=== PATIENT | female | born 1945 | race Caucasian/White ===

== ENCOUNTER 2018-08-31 10:41 | Inpatient (IN) | payer MEDICARE, SELFPAY | END 2018-09-04 18:10 | disposition home or self-care (01) | DRG 291 | PROVIDERS: Admitting Provider Internal Medicine; Emergency Provider Emergency Medicine; PCP Internal Medicine; Visit Provider Family Medicine | DX: I13.0 Hypertensive heart and chronic kidney disease with heart failure and stage 1 through stage 4 chronic kidney disease, or unspecified chronic kidney disease (principal); I50.33 Acute on chronic diastolic (congestive) heart failure; J90 Pleural effusion, not elsewhere classified; I25.10 Atherosclerotic heart disease of native coronary artery without angina pectoris; G47.33 Obstructive sleep apnea (adult) (pediatric); N18.3 Chronic kidney disease, stage 3 (moderate); Z95.1 Presence of aortocoronary bypass graft; J43.9 Emphysema, unspecified; D64.9 Anemia, unspecified; F41.8 Other specified anxiety disorders; Z85.3 Personal history of malignant neoplasm of breast; L40.9 Psoriasis, unspecified; M19.90 Unspecified osteoarthritis, unspecified site; Z86.73 Personal history of transient ischemic attack (TIA), and cerebral infarction without residual deficits; Z90.49 Acquired absence of other specified parts of digestive tract; Z79.82 Long term (current) use of aspirin; K21.9 Gastro-esophageal reflux disease without esophagitis; Z87.11 Personal history of peptic ulcer disease; I25.2 Old myocardial infarction; Z95.2 Presence of prosthetic heart valve; Z87.891 Personal history of nicotine dependence; E11.22 Type 2 diabetes mellitus with diabetic chronic kidney disease | CPT/HCPCS: 32555; 36415; 71045; 71046; 71275; 80048; 82042; 83615; 83735; 83880; 84157; 84484; 85025; 85380; 85610; 85730; 86480; 87015; 87070; 87075; 87116; 87205; 87206; 88104; 88108; 88305; 89051; 93005; 94618; 94640; 96374; 96376; 97161; 97166; 99285; A9270; C8929; G0378; J1940; Q9967 ==

== ENCOUNTER 2019-06-11 15:20 | Outpatient (CLI) | payer MEDICARE, SELFPAY ==
--- NOTE | ~2019-06-11 | XR_ITS ---
EXAMINATION: XR chest 2V DATE: 06/11/2019 16:00 INDICATION: Pleural effusion, not elsewhere classified. TECHNIQUE: Frontal and lateral views of the chest were obtained. COMPARISON: Chest 2 views 04/24/2019 FINDINGS: There are lucencies in the lungs, consistent with emphysema. There is a small left pleural effusion. There are airspace opacities at left lung base. No pneumothorax. The heart size is normal. There are changes of heart valve replacement. IMPRESSION: 1. Improved small left pleural effusion. 2. Stable airspace opacities at left lung base, consistent with atelectasis versus pneumonia. 3. Emphysema. Reviewed, dictated and finalized at location A. FITTER IMPRESSION: 1. Improved small left pleural effusion. 2. Stable airspace opacities at left lung base, consistent with atelectasis ani elizabeth pneumonia. 3. Emphysema.
== END 2019-06-11 15:21 | disposition home or self-care (01) ==
PROVIDERS: PCP Internal Medicine; Visit Provider Internal Medicine Critical Care Medicine
DX: J90 Pleural effusion, not elsewhere classified (principal); J43.9 Emphysema, unspecified; R91.8 Other nonspecific abnormal finding of lung field
CPT/HCPCS: 71046

== ENCOUNTER 2019-06-25 16:22 | Outpatient (CLI) | payer MEDICARE, SELFPAY ==
--- NOTE | ~2019-06-25 | XR_ITS ---
CORRECTED REPORT Ordering provider changed from Lyubov Lawrence MD to Keri Williamson [facility] [id number] EXAMINATION: XR chest 2V EXAM DATE: 06/25/2019 16:53 INDICATION: Pleural effusion. TECHNIQUE: Frontal and lateral projections of the chest obtained and reviewed. Comparison is made to prior examination from 06/11/2019. FINDINGS: Sternotomy wires are present without findings to suggest sternal dehiscence. Cardiac valve replacement. Small to moderate-sized left pleural effusion with adjacent atelectasis is unchanged. The lungs are otherwise clear. There are no pleural effusions. The cardiomediastinal silhouette is within normal limits. There is no pneumothorax suspected. The bones and soft tissues are unremarkable. There are cholecystectomy clips. IMPRESSION: Persistent small to moderate left pleural effusion, adjacent atelectasis. Reviewed, dictated and finalized at location A. MTDD IMPRESSION: Persistent small to moderate left pleural effusion, adjacent atelec tasis.
== END 2019-06-25 16:23 | disposition home or self-care (01) ==
PROVIDERS: PCP Internal Medicine; Visit Provider Internal Medicine Critical Care Medicine
DX: J90 Pleural effusion, not elsewhere classified (principal); R06.09 Other forms of dyspnea
CPT/HCPCS: 71046

== ENCOUNTER 2019-10-03 12:39 | Outpatient (CLI) | payer MEDICARE, SELFPAY ==
--- NOTE | ~2019-10-03 | XR_ITS ---
EXAMINATION: XR chest 2V DATE: 10/03/2019 12:58 INDICATION: Shortness of breath. TECHNIQUE: Frontal and lateral views of the chest were obtained. COMPARISON: Chest 2 views 06/25/2019, chest CT 08/31/2018 FINDINGS: There are lucencies in the lungs, consistent with emphysema. There is a small left pleural effusion. There are airspace opacities at the lung bases. No pneumothorax. The heart size is normal. There are changes of mitral valve replacement. IMPRESSION: 1. Small left pleural effusion with interval improvement. 2. Airspace opacities at the lung bases, consistent with atelectasis or less likely pneumonia. 3. Emphysema. Reviewed, dictated and finalized at location A. IMPRESSION: 1. Small left pleural effusion with interval improvement. 2. Airspace opacities at the lung bases, consistent with atelectasis or less li maryellen pneumonia. 3. Emphysema.
== END 2019-10-03 12:40 | disposition home or self-care (01) ==
PROVIDERS: PCP Internal Medicine; Visit Provider Nurse Practitioner Family
DX: R06.02 Shortness of breath (principal); J43.9 Emphysema, unspecified; J90 Pleural effusion, not elsewhere classified; R91.8 Other nonspecific abnormal finding of lung field
CPT/HCPCS: 71046

== ENCOUNTER 2019-10-30 10:49 | Outpatient (CLI) | payer MEDICARE, SELFPAY ==
--- NOTE | ~2019-10-30 | XR_ITS ---
XR chest 2V 10/30/2019 11:08 Indication: Shortness of breath Procedure: AP portable chest Comparison: Comparison to multiple prior studies sequentially, with oldest reviewed study dated 11/2019. Findings: Status post median sternotomy for CABG. Cardiomegaly. Moderate left pleural effusion. Left basilar airspace disease, atelectasis versus pneumonia. There is a prosthetic heart valve. There is a therosclerosis of the aorta. Impression: 1: Left basilar airspace disease, atelectasis versus pneumonia. 2: Moderate left pleural effusion. Reviewed, dictated and finalized at location B. Impression: 1: Left basilar airspace disease, atelectasis versus pneumonia. 2: Moderate left pleural effusion.
== END 2019-10-30 10:50 | disposition home or self-care (01) ==
PROVIDERS: PCP Internal Medicine; Visit Provider Nurse Practitioner Family
DX: R06.02 Shortness of breath (principal); R91.8 Other nonspecific abnormal finding of lung field; J90 Pleural effusion, not elsewhere classified
CPT/HCPCS: 71046

== ENCOUNTER 2019-11-25 12:03 | Outpatient (CLI) | payer MEDICARE, SELFPAY ==
--- NOTE | ~2019-11-25 | XR_ITS ---
EXAMINATION: XR chest 2V DATE: 11/25/2019 12:32 INDICATION: Shortness of breath TECHNIQUE: frontal and lateral views of the chest were obtained. COMPARISON: Chest radiograph dated 10/30/2019 FINDINGS: Opacities in the left mid to lower lung zone consistent with small to moderate left pleural effusion and associated left basilar atelectasis and/or pneumonia. Right lung is clear. No pneumothorax or rig ht-sided pleural effusion. The cardiomediastinal silhouette is normal. Median sternotomy wires and me diastinal surgical clips are seen, likely from prior coronary artery bypass grafting. Mitral valve re pair. Atherosclerotic aorta. Cholecystectomy clips in the right upper quadrant. IMPRESSION: 1. No significant change in a small to moderate left pleural effusion with associated left basilar at electasis and/or pneumonia. Reviewed, dictated and finalized at location A. IMPRESSION: 1. No significant change in a small to moderate left pleural effusion with asso ciated left basilar atelectasis and/or pneumonia.
== END 2019-11-25 12:04 | disposition home or self-care (01) ==
PROVIDERS: PCP Internal Medicine; Visit Provider Clinical Nurse Specialist
DX: R06.02 Shortness of breath (principal)
CPT/HCPCS: 71046

== ENCOUNTER 2019-12-04 15:29 | Outpatient (CLI) | payer MEDICARE, SELFPAY ==
--- NOTE | ~2019-12-04 | CT_ITS ---
EXAMINATION: CT chest wo con DATE: 12/04/2019 16:00 INDICATION: Emphysema. Dyspnea TECHNIQUE: Computed tomography (CT) of the chest was performed without intravenous contrast. Addition al 3D reconstructions utilizing coronal maximum intensity projection (MIP) were performed. Automated exposure control and iterative reconstruction technique were employed. The dose-length product was 29 4.64 mGy-cm. COMPARISON: 08/31/2018 FINDINGS: Severe emphysema. Small to moderate-sized left pleural effusion. Peripheral consolidation at the late ral basilar left lower lobe and along the inferior lingula. At the left lower lobe there is associate d architectural distortion indicating volume loss consistent with round atelectasis. No pneumonia, pu lmonary edema, pneumothorax or right pleural effusion. Heart size is normal. No pericardial effusion. Atherosclerotic coronary artery calcifications unchanged prior sternotomy and coronary artery bypass grafting. Aortic valve calcification. Mitral valve repair. There is calcified atherosclerosis of the normal caliber aorta and many of the other arteries. Small sliding-type hiatal hernia. No interval change in several mildly prominent but not pathologically enlarged thoracic lymph nodes which are lik myke reactive. Cholecystectomy clips at the gallbladder fossa. IMPRESSION: 1. Severe emphysema. 2. Chronic small to moderate-sized left pleural effusion with atelectasis/scarring at the left lung b ase. 3. Small sliding-type hiatal hernia. Reviewed, dictated and finalized at location A. IMPRESSION: 1. Severe emphysema. 2. Chronic small to moderate-sized left pleural effusion with atelectasis/scarr ing at the left lung base. 3. Small sliding-type hiatal hernia.
== END 2019-12-04 15:30 | disposition home or self-care (01) ==
PROVIDERS: PCP Internal Medicine; Visit Provider Internal Medicine
DX: R06.00 Dyspnea, unspecified (principal); J43.9 Emphysema, unspecified; K44.9 Diaphragmatic hernia without obstruction or gangrene; J90 Pleural effusion, not elsewhere classified
CPT/HCPCS: 71250

== ENCOUNTER 2020-02-11 14:53 | Outpatient (CLI) | payer MEDICARE, SELFPAY ==
--- NOTE | ~2020-02-11 | XR_ITS ---
EXAMINATION: XR chest 2V DATE: 02/11/2020 15:17 INDICATION: Shortness of breath. TECHNIQUE: Frontal and lateral views of the chest were obtained. COMPARISON: Chest 2 views 11/25/2019, chest CT 12/04/2019 FINDINGS: There are lucencies in the lungs, consistent with emphysema. There is a small left pleural effusion. There are airspace opacities at left lung base, likely atelectasis. No pneumothorax. The he art size is normal. There are changes of mitral valve replacement and coronary artery bypass grafting . IMPRESSION: 1. Stable small left pleural effusion. 2. Stable airspace opacities at left lung base, likely atelectasis. Pneumonia is less likely. 3. Emphysema. Reviewed, dictated and finalized at location A. IMPRESSION: 1. Stable small left pleural effusion. 2. Stable airspace opacities at left lung base, likely atelectasis. Pneumonia i s less likely. 3. Emphysema.
== END 2020-02-11 14:54 | disposition home or self-care (01) ==
LOC: ANHIMG 14:57
PROVIDERS: PCP Internal Medicine; Visit Provider Nurse Practitioner Family
DX: J90 Pleural effusion, not elsewhere classified (principal); R06.02 Shortness of breath; J43.9 Emphysema, unspecified; R91.8 Other nonspecific abnormal finding of lung field
CPT/HCPCS: 71046

== ENCOUNTER 2020-04-06 11:34 | Emergency (ER) | payer MEDICARE, SELFPAY ==
--- NOTE | ~2020-04-06 | XR_ITS ---
EXAMINATION: XR chest 2V DATE: 04/06/2020 12:47 INDICATION: Shortness of breath, COPD TECHNIQUE: AP and lateral views of the chest are obtained. COMPARISON: 02/11/2020 FINDINGS: A small left pleural effusion has slightly increased in size. There is no pneumothorax. Lef t basilar airspace opacities have slightly worsened. There are changes of prior cardiac surgery. Ther e is mild thoracic spondylosis. IMPRESSION: 1. Small left pleural effusion with slight interval worsening. 2. Left basilar airspace opacity, consistent with atelectasis versus pneumonia. Reviewed, dictated and finalized at location A. NCIAL PLANNING CONSULTANT
[2020-04-06 11:58] VITALS: BP 112/55; PULSE 93; RESP 24; TEMP 36.7; O2SAT 100
--- NOTE | 2020-04-06 12:01 | ECG_ITS ---
Measurements Intervals [place] Rate: 85 P: 26 MI: 152 QRS: 60 QRSD: 90 T: 16 QT: 371 QTc: 442 Interpretive Statements SINUS RHYTHM LOW QRS VOLTAGE IN PRECORDIAL LEADS BORDERLINE R WAVE PROGRESSION, ANTERIOR LEADS BORDERLINE T WAVE ABNORMALITY- ANTERIOR LEADS BASELINE ARTIFACT- I, II, AVR, V3 BORDERLINE ECG Electronically Signed On 04-06-2020 15:17:13 EGG CRATER by Bertram Vides D.O.
[2020-04-06 12:16] LABS: Basophils Percent Auto 0.7 % (0.2-1.2); Eosinophils Absolute Auto 0.1 K/mm3 (0-0.3); Eosinophils Percent Auto 1.1 % (0-4.4); Hematocrit 31.7 % (37.0-47.0); Hemoglobin 10.4 g/dL (12.0-15.0); Immature Granulocyte Absolute 0.02 K/mm3 (0.00-0.031); Immature Granulocyte Percent A 0.4 % (0-0.5); Lymphocytes Absolute Auto 0.91 K/mm3 (0.9-3.2); Lymphocytes Percent Auto 19.9 % (18.3-44.2); Mean Corpuscular HGB Conc 32.8 g/dl (32-36); Mean Corpuscular Hemoglobin 29.3 pg (26-34); Mean Corpuscular Volume 89.3 fl (80-100); Mean Platelet Volume 9.4 fl (7.4-10.4); Monocytes Absolute Auto 0.4 K/mm3 (0.1-0.6); Monocytes Percent Auto 9.6 % (2.6-8.5); Neutrophils Absolute Auto 3.1 K/mm3 (1.3-6.7); Neutrophils Percent Auto 68.3 % (45.5-73.1); Platelet Count Result 193 k/mm3 (150-375); Red Blood Count 3.55 M/mm3 (4.2-5.4); Red Cell Distribution Width 12.8 % (11.5-14.5); White Blood Count 4.6 K/mm3 (4.5-10.0)
[2020-04-06 12:27] LABS: Anion Gap 7 mmol/L (8-16); Blood Urea Nitrogen 25 mg/dL (7-17); Calcium 9.1 mg/dL (8.4-10.2); Carbon Dioxide 26 mmol/L (22-30); Chloride 99 mmol/L (98-107); Estimated CRCL calculation 27 ml/min; Estimated Glomerular Filt Rate 30; Glucose 344 mg/dL (65-105); Potassium 4.6 mmol/L (3.4-5.0); Sodium 132 mmol/L (137-145)
[2020-04-06 14:14] VITALS: BP 143/80; PULSE 86; RESP 17; O2SAT 100
[2020-04-06 14:15] VITALS: O2SAT 100
--- NOTE | 2020-04-06 14:38 | ED.SOB ---
HPI - SOB/Dyspnea General Chief Complaint: Shortness of Breath/Dyspnea Stated Complaint: SOB Time Seen by Provider: 04/06/20 14:09 Source: patient Mode of arrival: wheelchair Limitations: no limitations History of Present Illness HPI Narrative: This is a 74 year old female that presents to the ER for increasing shortness of breath x 2 days. Reports she usually uses home O2 as needed. Reports over the last couple of days she has had to be on 2 L chronically. Denies any other symptoms. Denies fever, cough, or chest pain. Related Data Home Medications Medication Instructions Recorded Confirmed albuterol sulfate 90 mcg/actuation 1 puff INHALATION Q4H PRN 02/18/19 02/03/20 aerosol inhaler aspirin 81 mg tablet,delayed 81 mg PO DAILY 02/18/19 02/03/20 release cholecalciferol (vitamin D3) 50 2,000 unit PO DAILY 02/18/19 02/03/20 mcg (2,000 unit) capsule cyanocobalamin (vitamin B-12) 1,000 mcg PO DAILY 02/18/19 02/03/20 1,000 mcg capsule ezetimibe 10 mg tablet 10 mg PO DAILY 02/18/19 02/03/20 pyridoxine (vitamin B6) 100 mg 100 mg PO DAILY 02/18/19 02/03/20 tablet tramadol 50 mg tablet 50 mg PO Q6H PRN 02/18/19 02/03/20 ferrous sulfate 325 mg (65 mg 325 mg PO DAILY tablet 11/25/19 02/03/20 iron) tablet Allergies Allergy/AdvReac Type Severity Reaction Status Date / Time tetracycline Allergy Severe Anaphylaxis Verified 02/04/20 11:19 shellfish derived Allergy Severe Anaphylaxis Uncoded 02/03/20 10:59 Review of Systems Review of Systems: Narrative: CONSTITUTIONAL: Denies fever ENT: Denies rhinorrhea, congestion CARDIOVASCULAR: Denies chest pain, or edema. RESPIRATORY: Reports dyspnea. Denies cough All systems reviewed & are unremarkable except as noted in HPI and below PMFSH Past Medical History Medical History Anemia Asthma Breast cancer CKD (chronic kidney disease) stage 4, GFR 15-29 ml/min Diabetes type 2, controlled Diastolic dysfunction Dyspnea Hypertension Mitral valve stenosis Stroke Surgical History Surgical History Breast tumor H/O heart surgery Hx of cholecystectomy Family History Family History Mother Diabetes mellitus Hypertension Family history of chronic obstructive pulmonary disease, Onset Age: 71 Asthma Father Acute myocardial infarction Sibling Diabetes mellitus Asthma Family history of chronic obstructive pulmonary disease Social History Social History Smoking packs per day: 5 Smoking cigarettes per day: 100.0 Years smoked: 20 Smoking pack-years: 100.00 Smoking status: Former smoker Smoking end date: 04/17/87 Alcohol intake: never Exam Narrative: Exam Narrative: GENERAL: Well-appearing, well-nourished, and in no acute distress. HEAD: Normocephalic, atraumatic. EYES: EOMI. ENT: Nares clear, no rhinorrhea or epistaxis. Mucous membranes moist. Oropharynx without tonsillar hypertrophy exudate or other lesions. Bilateral TMs pearly fitzgerald non-bulging NECK: Supple. No adenopathy or masses. CHEST: No respiratory distress. Rales in the LLL. No wheezes or rhonchi HEART: Regular rate and rhythm. No murmur heard. Normal peripheral pulses. EXTREMITIES: Normal range of motion. No edema. SKIN: Warm, dry, no rash. NEURO: No focal deficits. Alert and oriented x3. PSYCH: Normal mood and affect Course Consultations Consultation #1: Spoke with her customer professional, Dr. Lawrence. Patient is to continue her daily prednisone. Also continue albuterol as needed. Will be started on Augmentin. Date: 04/06/20 Time: 16:39 Vital Signs Vital signs: Vital Signs Temperature 98.0 F 04/06/20 11:58 Pulse Rate 93 04/06/20 11:58 Respiratory Rate 24 H 04/06/20 11:58 Blood Pressure 112/55 L 04/06/20 11:58 Pulse Oximetry 100 04/06/20 1
[2020-04-06 14:58] LABS: Alveolar/Arterial O2 Gradient 37.1 mmHg; Base Excess ABG -1.7 mEq/l (+/-2.0); Carboxyhemoglobin 0.1 % THb (0-2.0); Fractional Inspired Oxygen 32 %; HCO3 ABG 22.7 mEq/l (22.0-26.0); Methemoglobin ABG 0.3 %THb (0-1.5); Oxygen Saturation ABG 98.9 % (95.0-100.0); Oxyhemoglobin 97.8 % THb (90.0-100.0); PCO2 ABG 37.2 mmHg (35.0-45.0); PO2 ABG 147.5 mmHg (80.0-100.0); PO2 FiO2 Ratio Arterial Blood 4.61 %; Reduced Hemoglobin 1.8 %THb (0-5.0); Site Drawn LEFT BRACHIAL; Total Hemoglobin 11.4 g/dL (12.0-18.0); pH ABG 7.404 (7.350-7.450)
[2020-04-06 14:59] LABS: Device NASAL CANNULA
[2020-04-06 15:04] VITALS: BP 122/64; PULSE 81; RESP 19; O2SAT 99
[2020-04-06 15:59] VITALS: BP 126/83; PULSE 94; RESP 20; O2SAT 100
[2020-04-06 16:58] VITALS: BP 151/79; PULSE 89; RESP 19; O2SAT 98
== END 2020-04-06 17:00 | disposition home or self-care (01) ==
PROVIDERS: Physician Assistant; Emergency Provider Emergency Medicine; PCP Internal Medicine
DX: J90 Pleural effusion, not elsewhere classified (principal); D64.9 Anemia, unspecified; J45.909 Unspecified asthma, uncomplicated; E11.22 Type 2 diabetes mellitus with diabetic chronic kidney disease; I12.9 Hypertensive chronic kidney disease with stage 1 through stage 4 chronic kidney disease, or unspecified chronic kidney disease; N18.4 Chronic kidney disease, stage 4 (severe); Z87.891 Personal history of nicotine dependence; Z79.84 Long term (current) use of oral hypoglycemic drugs; I05.0 Rheumatic mitral stenosis; Z86.73 Personal history of transient ischemic attack (TIA), and cerebral infarction without residual deficits; Z79.82 Long term (current) use of aspirin; R91.8 Other nonspecific abnormal finding of lung field; R94.31 Abnormal electrocardiogram [ECG] [EKG]
CPT/HCPCS: 36415; 36600; 71046; 80048; 82375; 82805; 83050; 85025; 93005; 99284

== ENCOUNTER 2020-06-04 09:45 | Outpatient (CLI) | payer MEDICARE, SELFPAY ==
--- NOTE | ~2020-06-04 | XR_ITS ---
XR chest 2V DATE: 06/04/2020 10:07 INDICATION: Right pleuritic chest pain. Bronchitis. TECHNIQUE: PA and lateral views COMPARISON: 04/06/2020 AP and lateral chest 02/11/2020 PA and lateral chest 01/28/2019 PA and lateral chest FINDINGS: There is poststernotomy and mitral valve replacement. Heart size is within normal limits. A ortic calcification and tortuosity. There is chronic blunting of the left costophrenic angle. There is chronic infiltrate, atelectasis an d/or fibrotic change at the left lung base, relatively stable in appearance since 01/28/2019. No right pleural effusion. Surgical clips overlie the right upper quadrant, consistent with cholecystectomy. Diffuse osteopenia. IMPRESSION: Chronic blunting of left costophrenic angle and chronic left basilar infiltrate, atelecta sis and/or fibrotic change Reviewed, dictated and finalized at location B. IGN STUDENT ADVISER IMPRESSION: Chronic blunting of left costophrenic angle and chronic left basila r infiltrate, atelectasis and/or fibrotic change
== END 2020-06-04 09:46 | disposition home or self-care (01) ==
PROVIDERS: PCP Internal Medicine; Visit Provider Internal Medicine Critical Care Medicine
DX: R07.81 Pleurodynia (principal); R91.8 Other nonspecific abnormal finding of lung field
CPT/HCPCS: 71046

== ENCOUNTER → 2020-06-12 00:29 | Outpatient (CLI) | payer MEDICARE, SELFPAY ==
[2020-06-12 17:47] LABS: SARS-CoV-2 RNA PCR Negative
== END ==
PROVIDERS: PCP Internal Medicine; Visit Provider Internal Medicine Critical Care Medicine
DX: Z01.812 Encounter for preprocedural laboratory examination (principal); Z20.822 Contact with and (suspected) exposure to COVID-19
CPT/HCPCS: C9803; U0003; U0005

== ENCOUNTER 2020-06-15 09:08 | Outpatient (CLI) | payer MEDICARE, SELFPAY ==
[2020-06-15] VITALS (7 sets, daily range): BP systolic 87–163; BP diastolic 46–73; PULSE 75–87; RESP 18–20; O2SAT 95–100
--- NOTE | ~2020-06-15 | XR_ITS ---
EXAMINATION: [id number] DATE: 06/15/2020 10:58 INDICATION: Left pleural effusion. TECHNIQUE: A single frontal view of the chest was obtained. COMPARISON: Chest 2 views 06/04/2020, chest CT 12/04/2019 FINDINGS: There is a small left pleural effusion. There is mild atelectasis at left lung base. No pne umothorax. The heart size is normal. There are changes of mitral valve replacement. IMPRESSION: 1. Small left pleural effusion with improvement status post thoracentesis. 2. Mild atelectasis at left lung base. Reviewed, dictated and finalized at location A. OPERATIONS MANAGER
--- NOTE | ~2020-06-15 | US_ITS ---
EXAMINATION: US thoracentesis DATE: 06/15/2020 11:28 INDICATION: pleural effusion TECHNIQUE: The procedure and its risks, benefits, and alternatives were discussed with the patient. P otential risks discussed included bleeding, infection, and pneumothorax. The patient understood the r isks and agreed to proceed. The skin was prepped and draped in sterile fashion. 1% lidocaine was used for local anesthesia. Under ultrasound guidance, a 5 Fr catheter with trochar was advanced into the left pleural effusion. Fluid was aspirated. The catheter was removed, and a dressing was applied. The re were no immediate complications. FINDINGS: Ultrasound images demonstrate a left pleural effusion and the catheter within the fluid. IMPRESSION: 1. Successful ultrasound-guided thoracentesis yielding 500 mL of coni-colored fluid. Reviewed, dictated and finalized at location A. WAY RADIO INSTALLER
[2020-06-15 09:48] LABS: Mean Platelet Volume 8.9 fl (7.4-10.4); Platelet Count Result 220 k/mm3 (150-375)
[2020-06-15 09:57] LABS: Prothrombin Time 14.2 Seconds (11.1-14.7)
[2020-06-15 11:11] LABS: Glucose Point of Care 193 (65-105)
--- NOTE | 2020-06-15 14:15 | SUR.PHASEII ---
Pt took one dose of her own Nitro tablet. IV catheter discontinued. dressing applied to site.
== END 2020-06-15 13:00 | disposition home or self-care (01) ==
PROVIDERS: Radiology Diagnostic Radiology; PCP Internal Medicine; Visit Provider Internal Medicine Critical Care Medicine
DX: J90 Pleural effusion, not elsewhere classified; Z51.81 Encounter for therapeutic drug level monitoring; Z79.899 Other long term (current) drug therapy
CPT/HCPCS: 32555; 36415; 82948; 85049; 85610

== ENCOUNTER 2020-07-12 12:05 | Emergency (ER) | payer MEDICARE, SELFPAY ==
--- NOTE | ~2020-07-12 | XR_ITS ---
EXAMINATION: XR chest 2V DATE: 07/12/2020 12:42 INDICATION: Shortness of breath TECHNIQUE: AP and lateral views of the chest are obtained. COMPARISON: 06/15/2020 FINDINGS: There is a small left pleural effusion. Airspace opacities are present in the left lung bas e. No pneumothorax is identified. The heart size is normal. There are changes of prior cardiac surger y. Mild thoracic spondylosis is noted. There is calcified atherosclerosis. IMPRESSION: 1. Small left pleural effusion. 2. Left basilar airspace opacities, consistent with chronic atelectasis and scarring with some superi mposed acute airspace disease, atelectasis versus pneumonia. Reviewed, dictated and finalized at location A. IMPRESSION: 1. Small left pleural effusion. 2. Left basilar airspace opacities, consistent with chronic atelectasis and sca rring with some superimposed acute airspace disease, atelectasis versus pneumon ia.
--- NOTE | ~2020-07-12 | CT_ITS ---
EXAMINATION: CT diagnostic chest wo con DATE: 07/12/2020 13:21 INDICATION: Shortness of breath, history of breast cancer TECHNIQUE: Computed tomography (CT) of the chest was performed without intravenous contrast. The dose -length product (DLP) was 290.69 mGy-cm. Automated exposure control and iterative reconstruction tech [employer] were employed. COMPARISON: 12/04/2019 FINDINGS: There is a small chronic left pleural effusion. There is severe emphysema. Chronic scarring is noted in the left lung base. There is mild superimposed atelectasis. No pneumothorax is identifie d. The heart size is normal. There is a 6 mm nodule in the right upper lobe on image 47. Chronic mild mediastinal lymphadenopathy is unchanged and likely reactive. There are changes of mitral valve surg patrice. There is mild thoracic spondylosis. Calcified coronary atherosclerosis is noted. IMPRESSION: 1. Chronic left pleural effusion with atelectasis and scarring in the left lower lobe. 2. Indeterminate 6 mm nodule of the right upper lobe. Follow-up CT in three months is recommended. Reviewed, dictated and finalized at location A. IMPRESSION: 1. Chronic left pleural effusion with atelectasis and scarring in the left lowe r lobe. 2. Indeterminate 6 mm nodule of the right upper lobe. Follow-up CT in three mon ths is recommended.
[2020-07-12 12:07] VITALS: BP 151/75; PULSE 99; RESP 22; TEMP 36.3; O2SAT 96
--- NOTE | 2020-07-12 12:07 | ECG_ITS ---
Measurements Intervals [place] Rate: 85 P: 34 NE: 158 QRS: 79 QRSD: 96 T: 35 QT: 395 QTc: 471 Interpretive Statements SINUS RHYTHM BORDERLINE ST-T WAVE ABNORMALITY- INFERIOR LEADS BASELINE ARTIFACT- I, II, III, AVR, AVL, AVF, V1-V3 BORDERLINE ECG Electronically Signed On 07-12-2020 16:27:08 CDT by Bertram Vides D.O.
[2020-07-12 12:38] VITALS: BP 117/80; PULSE 85; O2SAT 99
[2020-07-12 12:38] LABS: Basophils Percent Auto 0.6 % (0.2-1.2); Eosinophils Absolute Auto 0.1 K/mm3 (0-0.3); Eosinophils Percent Auto 1.1 % (0-4.4); Hematocrit 34.6 % (37.0-47.0); Hemoglobin 11.3 g/dL (12.0-15.0); Immature Granulocyte Absolute 0.01 K/mm3 (0.00-0.031); Immature Granulocyte Percent A 0.2 % (0-0.5); Lymphocytes Absolute Auto 1.08 K/mm3 (0.9-3.2); Lymphocytes Percent Auto 20.1 % (18.3-44.2); Mean Corpuscular HGB Conc 32.7 g/dl (32-36); Mean Corpuscular Hemoglobin 29.4 pg (26-34); Mean Corpuscular Volume 90.1 fl (80-100); Mean Platelet Volume 9.1 fl (7.4-10.4); Monocytes Absolute Auto 0.3 K/mm3 (0.1-0.6); Monocytes Percent Auto 5.9 % (2.6-8.5); Neutrophils Absolute Auto 3.9 K/mm3 (1.3-6.7); Neutrophils Percent Auto 72.1 % (45.5-73.1); Platelet Count Result 217 k/mm3 (150-375); Red Blood Count 3.84 M/mm3 (4.2-5.4); Red Cell Distribution Width 12.9 % (11.5-14.5); White Blood Count 5.4 K/mm3 (4.5-10.0)
[2020-07-12 12:50] LABS: Anion Gap 5 mmol/L (8-16); Blood Urea Nitrogen 22 mg/dL (7-17); Calcium 9.2 mg/dL (8.4-10.2); Carbon Dioxide 32 mmol/L (22-30); Chloride 99 mmol/L (98-107); Estimated CRCL calculation 27 ml/min; Estimated Glomerular Filt Rate 29; Glucose 282 mg/dL (65-105); Potassium 3.9 mmol/L (3.4-5.0); Sodium 136 mmol/L (137-145)
[2020-07-12 13:02] LABS: Alveolar/Arterial O2 Gradient 27.4 mmHg; Base Excess ABG 2.3 mEq/l (+/-2.0); Fractional Inspired Oxygen 30 %; HCO3 ABG 27.1 mEq/l (22.0-26.0); Oxygen Content ABG 16.6 %vol (16.0-22.0); Oxygen Saturation ABG 98.7 % (95.0-100.0); Oxyhemoglobin 97.7 % THb (90.0-100.0); PO2 FiO2 Ratio Arterial Blood 4.53 %; Total Hemoglobin 11.9 g/dL (12.0-18.0); pH ABG 7.418 (7.350-7.450)
[2020-07-12 13:03] LABS: Device NASAL CANNULA; Liters per Minute 2.5 LPM; Modified Allen's Test Pass; Site Drawn RIGHT RADIAL
--- NOTE | 2020-07-12 13:07 | ED.SOB ---
HPI - SOB/Dyspnea General Chief Complaint: Shortness of Breath/Dyspnea Stated Complaint: CANT BREATH Time Seen by Provider: 07/12/20 12:31 Source: patient, family and RN notes reviewed Mode of arrival: ambulatory Limitations: no limitations History of Present Illness HPI Narrative: Patient 75 years old white female brought to the emergency room by her because of increased shortness of breath over the last 3 weeks. Patient was hospitalized earlier this month and had thoracentesis without definite diagnosis. Patient report severe shortness of breath with light exertion. She denies any fever, chills, nausea, vomiting, coughing, chest pain. Related Data Home Medications Medication Instructions Recorded Confirmed albuterol sulfate 90 mcg/actuation 1 puff INHALATION Q4H PRN 02/18/19 06/09/20 aerosol inhaler aspirin 81 mg tablet,delayed 81 mg PO DAILY 02/18/19 06/09/20 release cholecalciferol (vitamin D3) 50 2,000 unit PO DAILY 02/18/19 06/09/20 mcg (2,000 unit) capsule cyanocobalamin (vitamin B-12) 1,000 mcg PO DAILY 02/18/19 06/09/20 1,000 mcg capsule ezetimibe 10 mg tablet 10 mg PO DAILY 02/18/19 06/09/20 pyridoxine (vitamin B6) 100 mg 100 mg PO DAILY 02/18/19 06/09/20 tablet ferrous sulfate 325 mg (65 mg 325 mg PO DAILY tablet 11/25/19 06/09/20 iron) tablet Allergies Allergy/AdvReac Type Severity Reaction Status Date / Time tetracycline Allergy Severe Anaphylaxis Verified 06/09/20 09:00 shellfish derived Allergy Severe Anaphylaxis Uncoded 06/09/20 09:00 Review of Systems Review of Systems: Narrative: CONSTITUTIONAL: Denies fever, chills, or sweats. EYES: Denies visual changes, redness, or discharge. ENT: Denies rhinorrhea, congestion, sore throat, or otalgia. CARDIOVASCULAR: Denies chest pain, palpitations, or edema. RESPIRATORY: Denies cough or dyspnea. GASTROINTESTINAL: Denies abdominal pain, nausea, vomiting, or diarrhea. GENITOURINARY: Denies dysuria or hematuria. SKIN: Denies rash or itching. MUSCULOSKELETAL: Denies back pain, joint pain, or myalgia. NEUROLOGIC: Denies headache, numbness, or weakness. PSYCHIATRIC: Denies anxiety or depression. [facility] Past Medical History Medical History Anemia Asthma Breast cancer CKD (chronic kidney disease) stage 4, GFR 15-29 ml/min Diabetes type 2, controlled Diastolic dysfunction Dyspnea Hypertension Mitral valve stenosis Stroke Surgical History Surgical History Breast tumor H/O heart surgery Hx of cholecystectomy Family History Family History Mother Diabetes mellitus Hypertension Family history of chronic obstructive pulmonary disease, Onset Age: 71 Asthma Father Acute myocardial infarction Sibling Diabetes mellitus Asthma Family history of chronic obstructive pulmonary disease Social History Social History Smoking packs per day: 5 Smoking cigarettes per day: 100.0 Years smoked: 20 Smoking pack-years: 100.00 Smoking status: Former smoker Smoking end date: 04/17/87 Alcohol intake: never Gender identity (if verbalized by the patient): Female Exam Narrative: Exam Narrative: General appearance: Well-developed, well-nourished, at the bedside Skin: Normal color Head: Normocephalic, nontraumatic Eyes: Clear conjunctiva ENT: Oropharynx normal, ears normal, nose normal Neck: Supple, nontender Chest and respiratory: Airway patent, no respiratory distress, no accessory muscle use Heart: Regular rate/rhythm Abdomen: Soft, nontender, no organomegaly, quiet bowel sounds Vascular: Normal peripheral pulses, normal capillary refill. Musculoskeletal: Normal range of motion, nontender back Neurologic: Alert and oriented ?3, TELEPHONE MECHANIC is normal as tested, no gross motor deficit
[2020-07-12 13:28] VITALS: BP 131/71; PULSE 70; RESP 12; O2SAT 99
[2020-07-12 13:28] LABS: Alanine Aminotransferase 23 U/L (4-35); Albumin Level 3.8 g/dL (3.5-5.1); Alkaline Phosphatase 143 U/L (38-126); Aspartate Amino Transferase 32 U/L (14-36); Bilirubin,Total 0.5 mg/dL (0.2-1.3)
[2020-07-12 13:37] LABS: NT Pro B Type Natriuretic Pept 861 PG/ML (5-100)
[2020-07-12 15:01] VITALS: BP 134/70; PULSE 91; RESP 12; O2SAT 99
== END 2020-07-12 15:02 | disposition home or self-care (01) ==
PROVIDERS: Emergency Provider Emergency Medicine; PCP Internal Medicine
DX: R06.02 Shortness of breath (principal); J44.9 Chronic obstructive pulmonary disease, unspecified; D64.9 Anemia, unspecified; E11.22 Type 2 diabetes mellitus with diabetic chronic kidney disease; I13.0 Hypertensive heart and chronic kidney disease with heart failure and stage 1 through stage 4 chronic kidney disease, or unspecified chronic kidney disease; N18.4 Chronic kidney disease, stage 4 (severe); I50.30 Unspecified diastolic (congestive) heart failure; Z87.891 Personal history of nicotine dependence; Z85.3 Personal history of malignant neoplasm of breast; I05.0 Rheumatic mitral stenosis; Z86.73 Personal history of transient ischemic attack (TIA), and cerebral infarction without residual deficits; R94.31 Abnormal electrocardiogram [ECG] [EKG]; R91.8 Other nonspecific abnormal finding of lung field; R91.1 Solitary pulmonary nodule; Z79.82 Long term (current) use of aspirin; Z79.84 Long term (current) use of oral hypoglycemic drugs
CPT/HCPCS: 36415; 36600; 71046; 71250; 80048; 80076; 82805; 83880; 85025; 87040; 93005; 99284

== ENCOUNTER → 2020-08-29 00:19 | Outpatient (CLI) | payer MEDICARE, SELFPAY ==
[2020-08-29 19:43] LABS: SARS-CoV-2 RNA PCR Negative
== END ==
PROVIDERS: PCP Internal Medicine; Visit Provider Internal Medicine Cardiovascular Disease
DX: Z01.812 Encounter for preprocedural laboratory examination (principal); Z20.822 Contact with and (suspected) exposure to COVID-19
CPT/HCPCS: C9803; U0003; U0005

== ENCOUNTER 2020-09-01 01:31 | Day surgery (SDC) | payer MEDICARE, SELFPAY ==
[2020-08-31 09:29] VITALS: BMI 29.2
[2020-09-01] VITALS (18 sets, daily range): BP systolic 118–148; BP diastolic 57–80; PULSE 79–92; RESP 16–22; TEMP 36.3–36.8; O2SAT 94–100; BMI 30.8
--- NOTE | 2020-09-01 09:47 | WPDMODSED ---
Moderate Sedation Note-Pt Data Patient Data Allergies Allergy/AdvReac Type Severity Reaction Status Date / Time shellfish derived Allergy Severe Anaphylaxis Verified 09/01/20 07:59 tetracycline Allergy Severe Anaphylaxis Verified 09/01/20 07:59 Home Medications Medication Instructions Recorded Confirmed Type albuterol sulfate 90 mcg/actuation 1 puff INHALATION Q4H PRN 02/18/19 08/31/20 History aerosol inhaler aspirin 81 mg tablet,delayed 81 mg PO DAILY 02/18/19 08/31/20 History release cholecalciferol (vitamin D3) 50 2,000 unit PO DAILY 02/18/19 08/31/20 History mcg (2,000 unit) capsule cyanocobalamin (vitamin B-12) 1,000 mcg PO DAILY 02/18/19 08/31/20 History 1,000 mcg capsule ezetimibe 10 mg tablet 10 mg PO DAILY 02/18/19 08/31/20 History pyridoxine (vitamin B6) 100 mg 100 mg PO DAILY 02/18/19 08/31/20 History tablet vitamin E succinate 400 unit tablet 400 unit PO DAILY #30 tablet 02/18/19 08/31/20 Rx potassium chloride 10 mEq 10 meq PO DAILY #30 tablet 03/08/19 08/31/20 Rx tablet,extended release magnesium oxide 400 mg PO DAILY #90 cap 06/18/19 08/31/20 Rx albuterol sulfate 2.5 mg INHALATION Q4-6H PRN #180 ml 11/01/19 08/31/20 Rx ferrous sulfate 325 mg (65 mg 325 mg PO DAILY tablet 11/25/19 08/31/20 History iron) tablet blood sugar diagnostic #100 each 01/06/20 08/10/20 Rx glimepiride 4 mg tablet 4 mg PO DAILY #90 tablet 02/03/20 08/31/20 Rx lancets #100 each 04/15/20 08/10/20 Rx pen needle, diabetic 32 gauge x #100 each 05/05/20 08/10/20 Rx 1/4 tramadol 50 mg tablet 50 mg PO Q6H PRN #30 tablet 06/15/20 08/31/20 Rx budesonide 160 mcg-glycopyr 9 2 inh INHALATION BID #10.7 g 07/24/20 08/31/20 Rx mcg-formot 4.8 mcg/actuation HFA inhaler prednisone 5 mg tablet 5 mg PO DAILY #90 tablet 07/28/20 08/31/20 Rx nitroglycerin 0.4 mg sublingual 0.4 mg SUBLINGUAL Q5M PRN #90 08/06/20 08/31/20 Rx tablet tablet liraglutide 0.6 mg/0.1 mL (18 mg/3 0.6 mg SUB-Q DAILY #9 ml 08/10/20 08/31/20 Rx mL) subcutaneous pen injector furosemide [Lasix] 20 mg PO DAILY 08/31/20 08/31/20 History Current Medications: Active Medications Sodium Chloride (Normal Saline Iv) 500 mls @ 100 mls/hr IV CONT .Q5H MIN Sedation/Anesthesia: No previous sedation/anesthesia problems (including family history). [facility] Past Medical History Medical History Anemia Asthma Breast cancer CKD (chronic kidney disease) stage 4, GFR 15-29 ml/min Diabetes type 2, controlled Diastolic dysfunction Dyspnea Hypertension Mitral valve stenosis Stroke Surgical History Surgical History Breast tumor H/O heart surgery Hx of cholecystectomy Family History Family History Mother Diabetes mellitus Hypertension Family history of chronic obstructive pulmonary disease, Onset Age: 71 Asthma Father Acute myocardial infarction Sibling Diabetes mellitus Asthma Family history of chronic obstructive pulmonary disease Social History Social History Smoking packs per day: 5 Smoking cigarettes per day: 100.0 Years smoked: 20 Smoking pack-years: 100.00 Smoking status: Former smoker Tobacco type: cigarettes Smoking end date: 04/17/87 Additional smoking assessment comments: 3-4PPD smoker for 30 years Alcohol intake: never Substance use: never Living arrangements: with family Gender identity (if verbalized by the patient): Female Sexual Orientation (if Verbalized by the Patient): Straight or Heterosexual Spiritual care concerns: No Mod Sed Physical Exam Physical Exam Pre Procedural Exam: Normal: Airway Hours since solid foods: 10 Hours since liquid intake: 10 Internal Medicine - PN: Obj Da Vital Signs Vital Signs: Vital Signs - 24 hr 09/01/20 07:50 Temperature
--- NOTE | 2020-09-01 11:00 | WPDCARDPROC ---
Cardiac Cath Procedure Note Date of procedure:: 09/01/20 Performing physician:: Mickey Ascencio MD Procedure Procedure note:: RIGHT AND LEFT HEART CATHETERIZATION, CORONARY AND BYPASS GRAFT ANGIOGRAM REPORT DATE OF PROCEDURE: 09/01/2020 INDICATION FOR PROCEDURE: Bioprosthetic mitral valve stenosis, worsening shortness of breath BRIEF CLINICAL HISTORY: 75-year-old female with history of CAD, mitral regurgitation status post CABG x3 ( camacho to LAD, SVG to OM, SVG to RCA) and history of mitral valve repair using ? # 26 Vo ring ( actual operative report is not available); hypertension, pulmonary hypertension, type 2 diabetes mellitus. Patient was referred by Dr. Kay for right and left heart catheterization in the setting of worsening shortness of breath and echocardiogram showing moderate severe mitral stenosis. Benefits and risks of the procedure were discussed with the patient in depth, and informed consent was obtained prior to the procedure. Risks of the procedure include but are not limited to vascular complications including groin hematoma, retroperitoneal bleed, vessel perforation; periprocedural SD, cardiac arrhythmias, stroke, contrast induced nephropathy, cardiac arrhythmias, pulmonary hemorrhage and . After discussing all the benefits, risks and alternatives, patient was willing to proceed with the procedure. PROCEDURES PERFORMED: 1. Left heart catheterization- Selective left and right coronary angiogram; left ventriculogram and hemodynamic assessment 2. Selective left subclavian angiogram 3. Right heart catheterization with hemodynamic assessment 4. Moderate sedation-CPT code 28351 MODERATE SEDATION: Midazolam 1 mg; fentanyl 25 mcg; Start time 0946 , Stop time 1041 ; Total [id number] time 55 minutes; Morena Bryant RN was trained observer for moderate sedation. ACCESS SITE: Right common femoral artery and vein PROCEDURE NOTE: After obtaining informed consent, patient was brought to catheterization lab and prepped and draped in a usual sterile manner. After local anesthesia with lidocaine, right common femoral artery access was taken with micropuncture needle followed by insertion of a 5 American sheath. Right common femoral venous access was taken with micropuncture needle followed by insertion of a 7 American sheath. Right heart catheterization was performed using C [place] catheter. Pressures were measured in the right atrium, right ventricle, pulmonary artery, pulmonary capillary. O2 saturations were taken from the femoral artery, right atrium, right ventricle, pulmonary artery. Cardiac output was measured using Gerard's method. A 5 American pigtail catheter was advanced in the LV cavity, and simultaneous pressures were measured in the LV cavity and pulmonary capillary. Transmitral gradients were measured including mitral valve area. Gradient across the aortic valve was measured on the pullback of the catheter Next, Selective left and right coronary angiogram was performed using 5 American JL3.5 and JR4 catheters respectively. Orthogonal views were taken. The JR4 catheter was used for selective angiogram of the bypass graft in the aorta. The catheter was withdrawn, Pointed into left subclavian artery and selective left subclavian angiogram was performed. The catheter was advanced over the long exchange wire into the subclavian artery, and was exchanged with the 5 American IM catheter. Selective CAMACHO angiogram was performed using the 5 American IM catheter. The sheaths were secured in place. Manual pressure was used for local hemostasis of femoral Arterial and venous access site. Patient tolerated procedure well without any immediate procedure related complications. FINDINGS: LEFT HEART CATHETERIZATION: LEFT MAIN CORONARY: the left main coronary artery is a medium caliber vessel with high-grade, about 90% stenosis at the ostium. LEFT ANTERIOR DESCENDING ARTERY: the LAD has chronic total occlusion in the mi
--- NOTE | 2020-09-01 18:45 | SUR.PHASEII ---
DISCHARGED HOME, OUT VIA WC TO 'S WAITING CAR, WITH ALL PERSONAL BELONGINGS AND DISCHARGE PACKET. VOICES NO C/O. NO DISTRESS NOTED.
== END 2020-09-01 18:45 | disposition home or self-care (01) ==
PROVIDERS: PCP Internal Medicine; Visit Provider Internal Medicine Cardiovascular Disease
PROC: 4A023N8 Measurement of Cardiac Sampling and Pressure, Bilateral, Percutaneous Approach (ICD-10-PCS; CPT 93461; principal; 2020-09-01 09:00)
DX: T82.857A Stenosis of other cardiac prosthetic devices, implants and grafts, initial encounter (principal); Y83.8 Other surgical procedures as the cause of abnormal reaction of the patient, or of later complication, without mention of misadventure at the time of the procedure; I25.10 Atherosclerotic heart disease of native coronary artery without angina pectoris; R06.02 Shortness of breath; I27.20 Pulmonary hypertension, unspecified; I12.9 Hypertensive chronic kidney disease with stage 1 through stage 4 chronic kidney disease, or unspecified chronic kidney disease; N18.4 Chronic kidney disease, stage 4 (severe); E11.22 Type 2 diabetes mellitus with diabetic chronic kidney disease; D64.9 Anemia, unspecified; J45.909 Unspecified asthma, uncomplicated; Z79.51 Long term (current) use of inhaled steroids; Z95.1 Presence of aortocoronary bypass graft; Z79.82 Long term (current) use of aspirin; Z79.84 Long term (current) use of oral hypoglycemic drugs; Z87.891 Personal history of nicotine dependence
CPT/HCPCS: 93461; C1769; C1887; C1894; C9803; J0461; J1644; J2250; J3010; J7040; U0003; U0005

== ENCOUNTER 2021-03-29 13:05 | Outpatient (CLI) | payer MEDICARE, SELFPAY ==
--- NOTE | ~2021-03-29 | XR_ITS ---
XR chest 2V 03/29/2021 13:38 Indication: Atherosclerosis. Procedure: AP and lateral views of the chest Comparison: Comparison to multiple prior studies sequentially, with oldest reviewed study dated 03/18. Findings: Status post median sternotomy for CABG. Heart size is normal. There is bipolar pacemaker le ads in expected position. No focal air space disease, pulmonary edema, pleural effusion or suspected pneumothorax. The lungs are hyperinflated which is consistent with, but not diagnostic of chronic obs tructive pulmonary disease. Impression: 1: No acute cardiopulmonary disease. Reviewed, dictated and finalized at location A. SLABS SAWYER Impression: 1: No acute cardiopulmonary disease.
== END 2021-03-29 13:06 | disposition home or self-care (01) ==
LOC: ANHIMG 13:14
PROVIDERS: PCP Internal Medicine; Visit Provider Internal Medicine Cardiovascular Disease
DX: I25.10 Atherosclerotic heart disease of native coronary artery without angina pectoris (principal); J43.9 Emphysema, unspecified
CPT/HCPCS: 71046

== ENCOUNTER 2021-05-05 09:05 | Outpatient (CLI) | payer MEDICARE, SELFPAY ==
[2021-05-05 09:37] LABS: Basophils Percent Auto 0.5 % (0.2-1.2); Eosinophils Absolute Auto 0.1 K/mm3 (0-0.3); Eosinophils Percent Auto 0.8 % (0-4.4); Hematocrit 32.1 % (37.0-47.0); Hemoglobin 10.3 g/dL (12.0-15.0); Immature Granulocyte Absolute 0.03 K/mm3 (0.00-0.031); Immature Granulocyte Percent A 0.4 % (0-0.5); Lymphocytes Absolute Auto 1.16 K/mm3 (0.9-3.2); Lymphocytes Percent Auto 13.9 % (18.3-44.2); Mean Corpuscular HGB Conc 32.1 g/dl (32-36); Mean Corpuscular Hemoglobin 29.2 pg (26-34); Mean Corpuscular Volume 90.9 fl (80-100); Monocytes Absolute Auto 0.7 K/mm3 (0.1-0.6); Monocytes Percent Auto 8.6 % (2.6-8.5); Neutrophils Absolute Auto 6.3 K/mm3 (1.3-6.7); Neutrophils Percent Auto 75.8 % (45.5-73.1); Platelet Count Result 177 k/mm3 (150-375); Red Blood Count 3.53 M/mm3 (4.2-5.4); Red Cell Distribution Width 13.5 % (11.5-14.5); White Blood Count 8.3 K/mm3 (4.5-10.0)
[2021-05-05 09:51] LABS: Anion Gap 9 mmol/L (8-16); Blood Urea Nitrogen 29 mg/dL (7-17); Calcium 9.5 mg/dL (8.4-10.2); Carbon Dioxide 28 mmol/L (22-30); Chloride 98 mmol/L (98-107); Estimated Glomerular Filt Rate 28; Glucose 228 mg/dL (65-110); Potassium 3.8 mmol/L (3.4-5.0); Sodium 135 mmol/L (137-145)
== END 2021-05-05 09:06 | disposition home or self-care (01) ==
PROVIDERS: PCP Internal Medicine; Visit Provider Internal Medicine
DX: I12.9 Hypertensive chronic kidney disease with stage 1 through stage 4 chronic kidney disease, or unspecified chronic kidney disease (principal); N18.4 Chronic kidney disease, stage 4 (severe); E11.9 Type 2 diabetes mellitus without complications
CPT/HCPCS: 36415; 80048; 83036; 85025

== ENCOUNTER 2021-10-08 08:59 | Outpatient (CLI) | payer MEDICARE, SELFPAY ==
[2021-10-08 09:43] LABS: Basophils Percent Auto 0.4 % (0.2-1.2); Eosinophils Absolute Auto 0.1 K/mm3 (0-0.3); Eosinophils Percent Auto 0.6 % (0-4.4); Hematocrit 32.3 % (37.0-47.0); Hemoglobin 10.5 g/dL (12.0-15.0); Immature Granulocyte Absolute 0.04 K/mm3 (0.00-0.031); Immature Granulocyte Percent A 0.5 % (0-0.5); Lymphocytes Absolute Auto 1.34 K/mm3 (0.9-3.2); Lymphocytes Percent Auto 16.7 % (18.3-44.2); Mean Corpuscular HGB Conc 32.5 g/dl (32-36); Mean Corpuscular Hemoglobin 29.3 pg (26-34); Mean Corpuscular Volume 90.2 fl (80-100); Mean Platelet Volume 9.6 fl (7.4-10.4); Monocytes Absolute Auto 0.4 K/mm3 (0.1-0.6); Neutrophils Absolute Auto 6.2 K/mm3 (1.3-6.7); Neutrophils Percent Auto 76.8 % (45.5-73.1); Platelet Count Result 154 k/mm3 (150-375); Red Blood Count 3.58 M/mm3 (4.2-5.4)
[2021-10-08 09:47] LABS: Anion Gap 6 mmol/L (8-16); Blood Urea Nitrogen 38 mg/dL (7-17); Calcium 8.8 mg/dL (8.4-10.2); Carbon Dioxide 25 mmol/L (22-30); Chloride 104 mmol/L (98-107); Estimated Glomerular Filt Rate 29; Glucose 216 mg/dL (65-110); Potassium 4.2 mmol/L (3.4-5.0); Sodium 135 mmol/L (137-145)
[2021-10-08 09:55] LABS: Creatinine Urine 121.9 mg/dL
[2021-10-08 10:00] LABS: MALB Creatinine Ratio 100.6 mg/g (0-30); Microalbumin Urine Random 122.6 mg/L (0-16.7)
[2021-10-08 10:15] LABS: Hemoglobin A1C 8.6 % (<5.7)
== END 2021-10-08 09:00 | disposition home or self-care (01) ==
PROVIDERS: PCP Internal Medicine; Visit Provider Internal Medicine
DX: E11.29 Type 2 diabetes mellitus with other diabetic kidney complication (principal)
CPT/HCPCS: 36415; 80048; 82043; 83036; 85025

== ENCOUNTER 2022-05-09 11:58 | Outpatient (CLI) | payer MEDICARE, SELFPAY ==
[2022-05-09 17:17] LABS: Alanine Aminotransferase 19 U/L (6-35); Albumin Level 3.4 g/dL (3.5-5.1); Alkaline Phosphatase 102 U/L (38-126); Anion Gap 4 mmol/L (8-16); Aspartate Amino Transferase 21 U/L (14-36); Bilirubin,Total 0.5 mg/dL (0.2-1.3); Blood Urea Nitrogen 35 mg/dL (7-17); Calcium 8.7 mg/dL (8.4-10.2); Carbon Dioxide 29 mmol/L (22-30); Chloride 101 mmol/L (98-107); Estimated Glomerular Filt Rate 27; Glucose 194 mg/dL (65-110); Potassium 4.5 mmol/L (3.4-5.0); Sodium 134 mmol/L (137-145)
[2022-05-09 17:26] LABS: Erythrocyte Sedimentation Rate 16 mm/hr (0-20)
[2022-05-09 18:22] LABS: Folic Acid > 20.0 ng/mL (2.76->20); Vitamin B12 > 1000.0 pg/mL (239-931)
== END 2022-05-09 11:59 | disposition home or self-care (01) ==
PROVIDERS: PCP Internal Medicine; Visit Provider Internal Medicine
DX: R41.3 Other amnesia (principal); E11.29 Type 2 diabetes mellitus with other diabetic kidney complication
CPT/HCPCS: 36415; 80053; 82607; 82746; 83036; 84443; 85652

== ENCOUNTER 2022-06-13 11:10 | Outpatient (CLI) | payer MEDICARE, SELFPAY ==
--- NOTE | ~2022-06-13 | CT_ITS ---
EXAMINATION: CT brain wo con DATE: 06/13/2022 11:29 INDICATION: Mental status changes. Dementia. TECHNIQUE: Computed tomography (CT) of the head was performed without intravenous contrast. The dose- length product was 529.67 mGy-cm. Automated exposure control and iterative reconstruction technique w ere employed. COMPARISON: None FINDINGS: There is a chronic right frontal lobe infarction. There is a chronic parietal lobe infarcti on. Generalized atrophy. There are scattered mild periventricular and subcortical white matter change s, most likely related to small vessel ischemic disease (microangiopathy). No ventriculomegaly or mid line shift. There is a chronic right lacunar infarction. There is intracranial atherosclerosis. There is a chronic left thalamic infarction. Basilar cisterns are patent. Midline sagittal images are unre markable. Paranasal sinuses and mastoids are pneumatized. No acute infarction, intracranial hemorrhag e, mass or mass effect. IMPRESSION: 1. No acute intracranial abnormality. 2: Chronic right frontal lobe, left parietal lobe, left thalamic and right lacunar infarctions. 3: Chronic age-related findings. Reviewed, dictated and finalized at location B. D SALES MANAGER IMPRESSION: 1. No acute intracranial abnormality. 2: Chronic right frontal lobe, left parietal lobe, left thalamic and right lacu froylan infarctions. 3: Chronic age-related findings.
== END 2022-06-13 11:11 | disposition home or self-care (01) ==
PROVIDERS: PCP Internal Medicine; Visit Provider Internal Medicine
DX: F03.90 Unspecified dementia, unspecified severity, without behavioral disturbance, psychotic disturbance, mood disturbance, and anxiety (principal); R41.3 Other amnesia
CPT/HCPCS: 70450

== ENCOUNTER 2022-09-27 09:59 | Outpatient (CLI) | payer MEDICARE, SELFPAY ==
--- NOTE | ~2022-09-27 | US_ITS ---
EXAMINATION: US carotid duplex BI DATE: 09/27/2022 10:52 INDICATION: Cerebral infarction TECHNIQUE: Grayscale, color Doppler, and pulsed Doppler images of the cervical carotid arteries were obtained. The degree of vessel stenosis is placed in one of the following categories: normal, <50%, 5 0-69%, >=70% but less than near-occlusion, near-occlusion, or total occlusion. Note that percent sten osis relative to normal distal artery lumen diameter is indirectly measured from velocity measurement s as described by Alex, et al. Radiology 2003; 229:340-346. Notes: Normal: Peak systolic velocity <125 centimeters/sec and no plaque <50%. Peak systolic velocity <125 ( EDV <40; ICA/CCA PSV ratio <2.0; used these factors only a tandem lesions or low cardiac output or co ntralateral disease) 50-69 %: PSV 125-230 (EDV 40-100; ratio 2-4) >= 70% but less than near occlusion: PSV greater than 230 (EDV > 100; ratio> 4.0) Near Occlusion: PSV that is variable; markedly narrowed lumen Occlusion: Absent flow on color/spectral Doppler and no lumen on fitzgerald scale. COMPARISON: None. FINDINGS: RIGHT: The right common carotid artery (CCA) peak systolic velocity (PSV) is 94 cm/s. The right internal car otid artery (ICA) PSV is 118 cm/s. The right ICA end-diastolic velocity (EDV) is 28 cm/s. The right I CA/CCA PSV ratio is 1.3. The external carotid artery (ECA) PSV is 111 cm/s. There is antegrade flow i n the right vertebral artery. LEFT: The left CCA PSV is 80 cm/s. The left ICA PSV is 105 cm/s. The left ICA EDV is 18 cm/s. The left ICA/ CCA PSV ratio is 1.3. The ECA PSV is 107 cm/s. There is antegrade flow in the left vertebral artery. IMPRESSION: 1. Less than 50% stenosis in the right internal carotid artery by sonographic criteria. 2. Less than 50% stenosis in the left internal carotid artery by sonographic criteria. Reviewed, dictated and finalized at location L. IMPRESSION: 1. Less than 50% stenosis in the right internal carotid artery by sonographic leslee jovel. 2. Less than 50% stenosis in the left internal carotid artery by sonographic roshan simon.
== END 2022-09-27 10:00 | disposition home or self-care (01) ==
PROVIDERS: PCP Internal Medicine; Visit Provider Internal Medicine
DX: I63.9 Cerebral infarction, unspecified (principal)
CPT/HCPCS: 93880

== ENCOUNTER 2023-01-02 11:22 | Outpatient (CLI) | payer MEDICARE, SELFPAY ==
[2023-01-02 12:16] LABS: Appearance Urine Cloudy (Clear); Bacteria Urine 4+ /hpf; Bilirubin Urine Negative (Negative); Blood Urine 1+ (Negative); Color Urine Yellow (Yellow); Glucose Urine UA 3+ mg/dL (Negative); Ketones Urine Negative (Negative); Leukocyte Esterase Ur 1+ LEU/UL (NEGATIVE); Nitrate Urine Positive (Negative); Non Pathogenic Casts 0-2; Protein Urine 1+ mg/dL (Negative); RBC Urine 0-2 /hpf (0-2); Specific Grav Ur 1.025 (1.001-1.035); Squamous Epithelial Cell Urine Occasional /hpf (Few); Urobilinogen Urine 0.2 mg/dL (<2.0); WBC Urine 51-100 /hpf (0-3)
[2023-01-02 12:21] LABS: Add Urine Microscopic? YES
== END 2023-01-02 11:23 | disposition home or self-care (01) ==
PROVIDERS: PCP Internal Medicine; Visit Provider Internal Medicine Nephrology
DX: R82.81 Pyuria (principal)
CPT/HCPCS: 81001; 87077; 87086; 87186

== ENCOUNTER 2023-01-11 14:27 | Outpatient (CLI) | payer MEDICARE, SELFPAY ==
--- NOTE | ~2023-01-11 | US_ITS ---
US renal BI 01/11/2023 15:10 Procedure: Realtime transabdominal ultrasound of the kidneys and bladder. Indication: Chronic kidney disease stage IV Comparison: 05/27/2014 Findings: Renal echotexture is normal bilaterally without hydronephrosis, contour deforming mass. The re are multiple echogenic foci in the right kidney, consistent with nonobstructing renal stones. The right kidney measures 8.4 cm and left kidney measures 9.8 cm. Bladder is not well distended for evalu ation. Impression: 1: Multiple echogenic foci with shadowing of the right kidney, compatible with nonobstructing right n ephrolithiasis. Reviewed, dictated and finalized at location L. Impression: 1: Multiple echogenic foci with shadowing of the right kidney, compatible with nonobstructing right nephrolithiasis.
== END 2023-01-11 14:28 | disposition home or self-care (01) ==
PROVIDERS: PCP Internal Medicine; Visit Provider Internal Medicine Nephrology
DX: N18.4 Chronic kidney disease, stage 4 (severe) (principal)
CPT/HCPCS: 76775

== ENCOUNTER 2023-04-04 08:13 | Outpatient (CLI) | payer MEDICARE, SELFPAY ==
[2023-04-04 11:49] LABS: Appearance Urine Cloudy (Clear); Bacteria Urine 4+ /hpf; Bilirubin Urine Negative (Negative); Blood Urine Negative (Negative); Color Urine Yellow (Yellow); Glucose Urine UA 3+ mg/dL (Negative); Ketones Urine Negative (Negative); Leukocyte Esterase Ur Trace LEU/UL (NEGATIVE); Nitrate Urine Negative (Negative); Protein Urine Negative (Negative); RBC Urine 0-2 /hpf (0-2); Specific Grav Ur 1.021 (1.001-1.035); Squamous Epithelial Cell Urine None seen /hpf (Few); Urobilinogen Urine 0.2 mg/dL (<2.0)
[2023-04-04 11:51] LABS: Add Urine Microscopic? YES
== END 2023-04-04 08:14 | disposition home or self-care (01) ==
LOC: ANHGOSHLAB 08:14
PROVIDERS: PCP Internal Medicine; Visit Provider Internal Medicine
DX: R30.0 Dysuria (principal)
CPT/HCPCS: 81001

== ENCOUNTER 2023-04-11 13:58 | Emergency (ER) | payer MEDICARE, SELFPAY ==
--- NOTE | ~2023-04-11 | XR_ITS ---
EXAM: XR foot RT min 3V DATE: 04/11/2023 14:38 HISTORY: pain to heel X 1 MONTH, NO KNOWN TRAUMA . COMPARISON: None available. FINDINGS: Decreased mineralization. No fracture or dislocation. No lytic or blastic lesion. Scattere d degenerative changes. No erosion or periosteal change. Vascular calcifications. IMPRESSION: No acute osseous finding in the right foot. Reviewed, dictated and finalized at location K. TIONAL TESTER TYPEWRITERS
[2023-04-11 14:02] VITALS: BP 135/33; PULSE 82; RESP 16; TEMP 36.5; O2SAT 96
--- NOTE | 2023-04-11 14:05 | ED.LOWEXIN ---
HPI - Extremity Injury (Lower) General Chief Complaint: Extremity Injury, Lower Stated Complaint: Heel pain, difficulty walking Time Seen by Provider: 04/11/23 18:00 Source: patient and family (spouse) Mode of arrival: wheelchair Limitations: dementia History of Present Illness HPI Narrative: patient is a pleasant 77 yo female with past medical hx as noted below who presents to the ED today for evaluation of right heel pain started about 9-10 days ago. per the it hurts her all the time even laying down but she can't put weight on it. there was no fall or injury. no open wound. he gave her ibuprofen today. she was asking for pain medication so he wanted her to get checked out. denies there being any swelling. Related Data Home Medications Medication Instructions Recorded Confirmed albuterol sulfate 90 mcg/actuation 1 puff inhalation Q4H PRN Dyspnea 02/18/19 01/09/23 aerosol inhaler (Proventil HFA) aspirin 81 mg tablet,delayed 81 mg PO DAILY 02/18/19 01/09/23 release (Adult Low Dose Aspirin) lansoprazole 30 mg capsule,delayed 30 mg PO DAILY 12/29/20 01/09/23 release folic acid 400 mcg tablet 0.4 mg PO DAILY 01/11/22 01/09/23 vitamin B complex (B 1 tablet PO DAILY 01/11/22 01/09/23 Complex-Vitamin B12 tablet) donepezil 10 mg tablet 10 mg PO DAILY 08/22/22 01/09/23 Allergies Allergy/AdvReac Type Severity Reaction Status Date / Time shellfish derived Allergy Severe Anaphylaxis Verified 04/11/23 13:59 tetracycline Allergy Severe Anaphylaxis Verified 04/11/23 13:59 Review of Systems Review of Systems: MUSK: right heel pain worse than the left. SKIN: denies any open wound, rash. NEURO: denies numbness/tingling to RLE ROS unobtainable: Yes other (dementia ) [facility] Past Medical History Medical History Anemia Asthma Breast cancer CKD (chronic kidney disease) stage 4, GFR 15-29 ml/min Dementia Diabetes type 2, controlled Diastolic dysfunction DM renal manif type II Dyspnea Hypertension Mitral valve stenosis Stroke Surgical History Surgical History Breast tumor H/O heart surgery Hx of cholecystectomy Family History Family History Mother Diabetes mellitus Hypertension Family history of chronic obstructive pulmonary disease, Onset Age: 71 Asthma Father Acute myocardial infarction Sibling Diabetes mellitus Asthma Family history of chronic obstructive pulmonary disease Social History Social History Smoking packs per day: 5 Smoking cigarettes per day: 100.0 Years smoked: 20 Smoking pack-years: 100.00 Smoking status: Former smoker Tobacco type: cigarettes Smoking end date: 04/17/87 Additional smoking assessment comments: 3-4PPD smoker for 30 years Alcohol intake: never Substance use: never Lack of Transportation: No Lack of Food: Never True Current Housing: I Have Housing Concerned About Future Housing: No Difficulty Paying Gas/Electric Bills: No Difficulty Paying for Meds: YES Currently Unemployed: No Education: High School Diploma/GED Difficulty w/ Childcare or Family Care: No Living arrangements: with family Gender identity (if verbalized by the patient): Female Sexual Orientation (if Verbalized by the Patient): Straight or Heterosexual Spiritual care concerns: No Exam Narrative: FOCUSED EXAM CONST:elderly female resting in wheelchair. respirations regular, even, and non-labored, no acute distress noted. CARDIAC: regular rate and rhythm CHEST: lungs clear throughout RLE: no swelling to the right foot. there is tenderness to the heel with mild erythema that continues along the plantar fascia line. no open wound. full ROM noted, pain worse with ROM. no calf tenderness or swelling. no deformity. cap refi
[2023-04-11 18:29] VITALS: BP 140/62; PULSE 80; RESP 19; O2SAT 97
== END 2023-04-11 18:30 | disposition home or self-care (01) ==
PROVIDERS: Emergency Provider Nurse Practitioner; PCP Internal Medicine
DX: M72.2 Plantar fascial fibromatosis (principal); M79.671 Pain in right foot; I13.10 Hypertensive heart and chronic kidney disease without heart failure, with stage 1 through stage 4 chronic kidney disease, or unspecified chronic kidney disease; E11.22 Type 2 diabetes mellitus with diabetic chronic kidney disease; N18.4 Chronic kidney disease, stage 4 (severe); D64.9 Anemia, unspecified; J45.909 Unspecified asthma, uncomplicated; F03.90 Unspecified dementia, unspecified severity, without behavioral disturbance, psychotic disturbance, mood disturbance, and anxiety; Z85.3 Personal history of malignant neoplasm of breast; Z86.73 Personal history of transient ischemic attack (TIA), and cerebral infarction without residual deficits; Z87.891 Personal history of nicotine dependence; Z79.51 Long term (current) use of inhaled steroids; Z79.82 Long term (current) use of aspirin; Z79.84 Long term (current) use of oral hypoglycemic drugs
CPT/HCPCS: 73630; 99283

== ENCOUNTER 2023-04-26 09:39 | Outpatient (CLI) | payer MEDICARE, SELFPAY ==
--- NOTE | ~2023-04-26 | US_ITS ---
EXAMINATION: US art doppler w press LE BI DATE: 04/26/2023 10:29 INDICATION: Peripheral arterial disease. TECHNIQUE: Segmental pressures and plethysmographic and Doppler waveforms of the brachial and lower e xtremity arteries were obtained. COMPARISON: None. FINDINGS: Right and left brachial artery pressures of 200 mm Hg and 200 mm Hg, respectively, are concordant (no rmal difference <= 30 mmHg). The right ankle-brachial index (VANITA) could not be measured due to inability to cuff occlude dorsalis pedis (normal >= 0.9-1.0). Posterior tibial artery is occluded. The right great toe-brachial index (T BI) is 0.10 (normal >= 0.65). Arterial Doppler waveforms are triphasic in common femoral artery and m onophasic and broadened in popliteal artery and dorsalis pedis. The left VANITA could not be measured due to inability to cuff occlude the arteries. Posterior tibial ar romie is occluded. The left TBI could not be measured. Left great toe arterial signal is not detected. Arterial Doppler waveforms are monophasic and broadened in common femoral artery, noisy in popliteal artery, and monophasic and broadened in dorsalis pedis. IMPRESSION: 1. Systolic pressure of 200 mm Hg. 2. Occluded bilateral posterior tibial arteries. 3. Nondiagnostic ABIs. 4. Decreased right TBI. Left great toe arterial pressure not detected. Reviewed, dictated and finalized at location A. L BEATER
== END 2023-04-26 09:40 | disposition home or self-care (01) ==
LOC: CHSIMG 09:40
PROVIDERS: PCP Internal Medicine; Visit Provider Podiatrist Foot & Ankle Surgery
DX: I73.9 Peripheral vascular disease, unspecified (principal); I77.1 Stricture of artery
CPT/HCPCS: 93923

== ENCOUNTER 2023-06-12 12:30 | Outpatient (CLI) | payer MEDICARE, SELFPAY ==
[2023-06-12 16:23] LABS: Hematocrit 35.9 % (37.0-47.0); Hemoglobin 10.4 g/dL (12.0-15.0); Mean Corpuscular Volume 93.2 fl (80-100); Mean Platelet Volume 9.7 fl (7.4-10.4); Platelet Count Result 260 k/mm3 (150-375); Red Blood Count 3.85 M/mm3 (4.2-5.4); Red Cell Distribution Width 13.9 % (11.5-14.5); White Blood Count 8.2 K/mm3 (4.5-10.0)
[2023-06-12 17:13] LABS: Creatinine Urine 158.7 mg/dL; Total Protein Urine Random 22 mg/dL; Ur Ttl Prot Creatinine Ratio 0.14 mg/mg (0-0.20)
[2023-06-12 17:29] LABS: Parathyroid Intact 66.7 pg/mL (7.5-53.5)
[2023-06-12 17:55] LABS: Albumin Level 3.6 g/dL (3.5-5.1); Anion Gap 5 mmol/L (8-16); Blood Urea Nitrogen 32 mg/dL (7-17); Calcium 9.3 mg/dL (8.4-10.2); Carbon Dioxide 27 mmol/L (22-30); Chloride 105 mmol/L (98-107); Estimated Glomerular Filt Rate 29; Glucose 127 mg/dL (65-110); Phosphorus 3.7 mg/dL (2.5-4.5); Potassium 3.9 mmol/L (3.4-5.0); Sodium 137 mmol/L (137-145)
== END 2023-06-12 12:31 | disposition home or self-care (01) ==
LOC: ANHGOSHLAB 12:32
PROVIDERS: PCP Internal Medicine; Visit Provider Internal Medicine
DX: N18.4 Chronic kidney disease, stage 4 (severe) (principal); E21.1 Secondary hyperparathyroidism, not elsewhere classified; R06.02 Shortness of breath
CPT/HCPCS: 36415; 80069; 82570; 83970; 84156; 85027; 87077; 87086; 87186

== ENCOUNTER 2023-06-19 11:37 | Outpatient (RCR) | payer MEDICARE, SELFPAY ==
[2023-06-19 11:53] VITALS: BMI 29.2
== END 2023-09-04 08:38 | disposition home or self-care (01) ==
LOC: ANHWOC 11:37
PROVIDERS: PCP Internal Medicine; Visit Provider Internal Medicine
DX: L89.890 Pressure ulcer of other site, unstageable (principal)
CPT/HCPCS: 99214; G0463

== ENCOUNTER 2023-06-28 11:45 | Outpatient (CLI) | payer MEDICARE, SELFPAY ==
--- NOTE | ~2023-06-28 | XR_ITS ---
EXAMINATION: [id number] DATE: 06/28/2023 12:18 INDICATION: Right-sided rib pain. Pleurodynia. TECHNIQUE: A frontal view of the chest and 2 views on 3 radiographs of the right ribs and 2 views on 3 radiographs of the left ribs were obtained. COMPARISON: Chest 2 views 03/29/2021 FINDINGS: There is no pneumonia, pleural effusion, or pneumothorax. The heart size is normal. There a re prominent paracardial fat pads. Median sternotomy wires and mediastinal surgical clips are seen, l ikely from prior coronary artery bypass grafting. Retained epicardial pacer wires are noted. There is a left chest wall pacer with leads in the right atrium and right ventricle. Surgical clips overlie r ight breast. IMPRESSION: 1. No rib fracture. Reviewed, dictated and finalized at location A. IMPRESSION: 1. No rib fracture.
== END 2023-06-28 11:46 | disposition home or self-care (01) ==
LOC: ANHIMG 11:50
PROVIDERS: PCP Internal Medicine; Visit Provider Nurse Practitioner
DX: R07.81 Pleurodynia (principal)
CPT/HCPCS: 71111